=== PATIENT | female | born 1985 | race Two or more races ===

== ENCOUNTER 2024-02-29 10:30 | Emergency (ER) | payer BC ==
[~2024-02-29] VITALS: Ht 167.6 cm; Wt 88.0 kg
[2024-02-29] MEDS ORDERED: TRAMADOL HCL 50 MG TABLET PO STA (12:26)
== END 2024-02-29 13:04 | disposition home or self-care (01) ==
LOC: ER 10:32
DX: S42.291A Other displaced fracture of upper end of right humerus, initial encounter for closed fracture (principal); W19.XXXA Unspecified fall, initial encounter; Y93.89 Activity, other specified; Y92.89 Other specified places as the place of occurrence of the external cause; Y99.8 Other external cause status; M25.511 Pain in right shoulder